=== PATIENT | female | born 1975 | race Caucasian/White ===

== ENCOUNTER 2016-07-21 11:16 | Emergency (ER) | payer OTHER ==
[~2016-07-21] VITALS: Ht 160 cm; Wt 100.0 kg
[~2016-07-21 11:16] MED LIST: ProAirHFA IH
[2016-07-21 11:27] VITALS: BP 185/129; PULSE 88; RESP 17; O2SAT 88
--- NOTE | 2016-07-21 11:34 | ED.REPORT ---
HPI-Extremity Problem Upper Date of Service July 21, 2016 ED Provider: Ralu Webster MD The patient is a 40 year old female who presents to the ED for help with pain management. For the past 8-10 months, she has had arthritic pain in the left knee. The pt just moved to the area from [place] and does not have a PCP yet. She has been to 2 Urgent Cares requesting narcotics and has not been able to get any pain medication. Her orthopedic surgeon, Dr. Kelly, told her to go to get ED for narcotics. She is starting a new job tomorrow and requests pain medication (Hydrocodone 5mg) until she can get to her primary care appointment in 9 days. She denies fever and SOB. Dr. Persaud in [place] is her orthopedic surgeon. Nursing Notes Stated Complaint: LEFT KNEE PAIN Chief Complaint: General Complaint Nursing Notes Reviewed: Yes Allergies: Coded Allergies: Nitrofurantoin (Verified Allergy, Intermediate, rash, 07/01/12) Nitrofurantoin Macrocrystal (Verified Allergy, Intermediate, rash, 07/01/12 ) Scheduled Albuterol HFA (Proair HFA) 8.5 Gm Hfa.aer.ad 2 PUFFS INHALATION Q4H Miscellaneous Medications Albuterol-Expunged Drug, Do Not Renew! (ProAir HFA-Expunged Drug, Do Not Renew! ) 200 Puff/8.5 Gm Hfa.aer.ad 8.5 GM IH General Time Seen by MD: 11:33 Chief Complaint Other (left knee pain) Hx Obtained From: Patient Arrived By: Walk-in Onset Occurred: More than a week ago... (>6 months) Symptom Duration: Since onset Quality: Painful Severity: Current: Moderate Recent Healthcare: Recent doctor visit, Previous surgery Similar Sx Previous: Yes Past Medical History Past Medical History Reports: Asthma Past Surgical History left knee surgery Smoking History Unknown if Ever Smoker Social History Other Social History: Local resident Ambulatory Status Independent Review of Systems Musculoskeletal: Reports: Joint pain (left knee), Denies: Joint swelling Complete sys rev & neg: except as marked. Physical Exam Initial Vital Signs Vital Signs (First) Date Time Temp Pulse Resp B/P Pulse Ox O2 Delivery O2 Flow Rate FiO2 07/21/16 11:27 37.3 88 17 185/129 88 Room Air Initial VS: Reviewed Head / Eyes: Atraumatic, Normocephalic, PERRL ENT: Mucous membranes moist Respiratory: Breath sounds normal, Clear to auscultation Cardiovascular: Regular rate & rhythm, Heart sounds normal Abdomen / GI: Soft, Non-tender, No guarding, No rebound, No distention Back: No CVA tenderness Skin: Warm, Dry Neurologic: Alert, Oriented General/Constitutional: Awake, Alert, Cooperative, Not toxic appearing Lower Extremity / Pelvis / MS: Full range of motion, No swelling, No erythema, No deformity Left Knee: Positive: Tenderness present... full range of motion mcmurrys is negative no joint line tenderness Re-Eval/Medical Decision Med Decision/Clinical Course 40-year-old female with chronic left knee pain 8 months due to arthritis here requesting narcotics for her chronic pain. There have been no changes. She had no trauma. There have been no fevers, nausea vomiting, redness, swelling, any other new or worsening symptoms. Her knee exam is benign with no sign symptoms of infection, trauma, negative Aisha's and Alla's. I counseled her that we do not prescribe narcotics for chronic conditions. She understood this. She was given a shot of Toradol and plan to follow up with her primary doctor this week. Re-Evaluation/Progress : Time of Eval: 11:43 Re-Evaluation/Progress Note: Plan to give pt a Toridol shot and recommended going to [facility] today to get an appointment in the next 2 days. Pt understands and agrees with plan. Counseled Regarding: Diagnosis, Lab results, Need for follow-up, When/why to return to ED Discharge & Departure Impression: Primary Impression: Chronic pain of left knee Disposition: Home Discharge Condition All VS Reviewed: Yes Condition: Stable Patient Instructions: Chronic Pain (ED) Additional Instructions: I have given you a shot of Toradol. Take Ibuprofen as needed. Go over to the [facility] clinic, they should be able to get you an appointment within the next 2 days. I am sorry we can't provide you with any narcotics. Continue to follow up with the [facility] clinic for further pain management. Return to the Emergency Department for any new or worsening symptoms. I hope you feel better soon! Referrals: NOPCP (PCP) [facility] Scribe Attestation Portion of this note were transcribed by Jacqueline Victoria. I, Dr. Webster, personally performed the history, physical exam, and medical decision-making: I reviewed and confirmed the accuracy for the information in the transcribed note. Signed by: elizabeth Almazan, 07/21/16 1300 copies to: [facility] Raul Webster MD July 21, 2016 11:34 Jacqueline Victoria July 21, 2016 11:44
[2016-07-21] MEDS ORDERED: ALBU8.5H2 INHALATION (12:02)
[2016-07-21 12:44] VITALS: BP 179/111; PULSE 77; O2SAT 98
== END 2016-07-21 12:40 | disposition home or self-care (01) ==
LOC: SED 11:16
DX: G89.29 Other chronic pain (principal); M25.562 Pain in left knee; Z88.1 Allergy status to other antibiotic agents
CPT/HCPCS: 96372; 99283; J1885

== ENCOUNTER 2016-07-27 08:53 | Emergency (ER) | payer OTHER ==
[~2016-07-27] VITALS: Ht 160 cm; Wt 100.0 kg
[~2016-07-27 08:53] MED LIST changes: +ALBU8.5H2 INHALATION
[2016-07-27 09:09] VITALS: BP 168/106; PULSE 94; RESP 18; O2SAT 97
--- NOTE | 2016-07-27 09:15 | ED.REPORT ---
HPI-Back Pain Under 40 Date of Service July 27, 2016 ED Provider: Vijay Sher MD Patient is a 40 year old female with a history of asthma, bursitis, chronic knee pain and a discectomy who presents to the ED complaining of bilateral mid side back pain onset 4 days ago. Associated symptoms include back swelling and decreased urination output. Patient denies dysuria and increased urination frequency. She reports that the pain increases with deep inhalation and is exacerbated by movement. The patient describes the pain as constant and burning. She states that she has never felt this kind of pain before. Her job does require heavy lifting, bending and stocking products. She was recently prescribed Diclofenac after going to the Residency clinic for knee pain and thinks she might be having an allergic reaction to the medication. Patient recently finished taking Prednisone. The patient is currently on her menstrual cycle. She has no history of blood clots. Nursing Notes Stated Complaint: BACK PAIN/POSSIBLE ALLERGIC REACTION Chief Complaint: Back Pain or Injury Nursing Notes Reviewed: Yes Allergies: Coded Allergies: Nitrofurantoin Macrocrystal (Verified Allergy, Intermediate, rash, 07/01/12 ) nitrofurantoin (Verified Allergy, Intermediate, rash, 07/01/12) Scheduled Albuterol HFA (Proair HFA) 8.5 Gm Hfa.aer.ad 2 PUFFS INHALATION Q4H Scheduled PRN Cyclobenzaprine (Cyclobenzaprine) 5 Mg Tablet 5 MG PO HS PRN PRN Spasm Miscellaneous Medications Albuterol-Expunged Drug, Do Not Renew! (ProAir HFA-Expunged Drug, Do Not Renew! ) 200 Puff/8.5 Gm Hfa.aer.ad 8.5 GM IH General Time Seen by MD: 09:13 Chief Complaint Back pain Hx Obtained From: Patient Arrived By: Walk-in Sudden in Onset?: Yes Onset Occurred: 4 days ago Symptom Duration: Since onset Location: : Spinal lumbar area: Spinal thoracic area Quality: Burning Associated with: Denies: Dysuria Recent Healthcare: No recent hospitalization, Recent doctor visit Past Medical History Past Medical History Reports: Asthma, Hypertension Past Surgical History left knee surgery pylonidal cyst removed discetomy Smoking History Current Every Day Smoker Social History Alcohol Use: "Social" Other Social History: Local resident Ambulatory Status Independent Review of Systems Respiratory: Denies: Non-productive cough, Shortness of breath Female: Reports: Urination decreased, Denies: Dysuria, Urinary frequency Musculoskeletal: Reports: Back pain, Lumbar pain, Thoracic pain Complete sys rev & neg: except as marked. Physical Exam Initial Vital Signs Vital Signs (First) Date Time Temp Pulse Resp B/P Pulse Ox O2 Delivery O2 Flow Rate FiO2 07/27/16 09:09 36.5 94 18 168/106 97 Room Air Initial VS: Reviewed General/Constitutional: Awake, Alert BACK: mild bilateral tenderness of the thoracic and lumbar paraspinal healed midline scar Neurologic: Oriented X3, Speech NL, No motor deficits, No sensory deficits Respiratory / Chest: Atraumatic, Breath sounds NL, Breath sounds = bilat, No respiratory distress Cardiovascular: Heart rate NL, Regular rhythm, Heart sounds NL Abdomen: Atraumatic, Soft, Non-tender Lower Extremity / Pelvis / MS: Atraumatic, Full range of motion, Neurologic intact, Vascular intact Head / Eyes: Atraumatic, Normocephalic, PERRL, EOMI Upper Extremity / MS: Atraumatic, Full range of motion Skin: Atraumatic, Color NL, No rash, Warm, Dry Psychiatric: Affect NL, Mood NL Interpretation & Diagnostics Lab Results Interpretation Test 07/27/16 10:11 Urine Color Yellow (YELLOW) Urine Appearance Slightly cloudy Urine pH 6.0 (5.0-8.0) Urine Specific [place] 1.025 (1.003-1.035) Urine Protein 30mg/dL (NEG,TRACE) Urine Glucose (UA) Negativemg/dL (NEGATIVE) Urine Ketones Negativemg/dL (NEGATIVE) Urine Occult Blood Large (NEGATIVE) Urine Nitrite Negative (NEGATIVE) Urine Bilirubin Negative (NEGATIVE) Urine Urobilinogen Normalmg/dL (NORMAL) Urine Leukocyte Esterase Negative (NEGATIVE) Urine RBC 11-50/hpf (0-2) Urine WBC 0-5/hpf (0-5) Urine Epithelial Cells Many/hpf (NONE-MOD) Urine Crystals Amorphous urates (NONE Urine Bacteria Moderate/hpf (NONE-FEW) Urine Hyaline Casts None/lpf (NONE) Urine Granular Casts None seen (NONE SEEN) Urine Waxy Casts None seen (NONE SEEN) Urine Red Blood Cell Casts None seen (NONE SEEN) Urine White Blood Cell Casts None seen (NONE SEEN) Urine Mucus Present (None Seen) Urine Trichomonas None seen (NONE SEEN) Urine Yeast None (NONE SEEN) Urinalysis Comment None Urine Culture Reflexed Indicated Re-Eval/Medical Decision Med Decision/Clinical Course Obtained ED notification on patient, in the last 3 months she has obtained prescriptions for Morphine, Lorazepam and Hydrocodone from 2 different providers. In summary, the patient is a 40-year-old female with remote history of lumbar back surgery, who presents with thoracolumbar paraspinal back pain is worse with movement, bending and twisting. Our primary and secondary assessment reveals an awake, alert patient in no acute distress. Hemodynamically stable and afebrile. Exam reveals normal neurologic exam of the lower extremities. Given this immunocompetent, afebrile, patient's history and exam, suspect muscle strain or spasm. No concerning signs or symptoms suggestive of cauda equina, cord compression, epidural abscess or other neurologic emergency. History not suggestive of referred intraabdominal pathology or vascular emergency. There is no history of significant trauma, fever, incontinence, unexplained weight loss, cancer history, long-term steroid use or IV drug use. And given the patient's young age, I do not feel imaging is warranted at this time. The patient is already taking NSAIDs and I recommended ice packs/hot packs, stretching and ibuprofen her a dose of cyclobenzaprine here in the emergency room. Symptoms improved, friend will drive patient home. UA shows no evidence of UTI and is negative. She expressed some concern that her back pain may be related to allergy to NSAIDs however her overall constellation of symptoms is not suggestive thereof. Of note, the patient was somewhat agitated and quite frustrated that she had to repeat her story to me however after offering her treatment for her back pain she seemed less upset. I treated her with cyclobenzaprine as well as Tylenol but she reported no improvement in her symptoms. She stated that she refused to leave the emergency room until we made her pain go. At this time, we informed her that we would not administer opiates or benzodiazepines. At that time, the patient stood up and chose to leave the emergency room without receiving further treatment. I have discussed with the patient results of workup, indications for return including: motor weakness in the lower extremities and/or bowel or bladder incontinence. Also emphasized the need for PCP follow up. They understand the plan. Re-Evaluation/Progress #1: Time of Eval: 09:30 Re-Evaluation/Progress Note: Discussed plan for treatment and discharge during initial interview. The patient understands and agrees to the plan for discharge. All questions were addressed. Re-Evaluation/Progress #2: Time of Eval: 10:26 Re-Evaluation/Progress Note: Rechecked patient who reports she is still in pain and is not planning on leaving until she has some relief. Counseled Regarding: Diagnosis, Lab results, Need for follow-up, When/why to return to ED Discharge & Departure Impression: Primary Impression: Lumbosacral strain Encounter type: initial encounter Qualified Code: S39.012A - Strain of muscle, fascia and tendon of lower back, initial encounter Additional Impressions: Low back pain Chronicity: acute Back pain laterality: bilateral Sciatica presence: without sciatica Qualified Code: M54.5 - Low back pain Anxiety Noncompliance by refusing intervention or support Disposition: Home All VS Reviewed: Yes Condition: Stable Patient Instructions: Acute Low Back Pain (ED) Additional Instructions: Thank you for seeking care at the emergency room. It is difficult for us to make definitive diagnoses in the ED but we believe that you are experiencing musculoskeletal pain. Our primary goal today in the ED was to evaluate you for any life-threatening conditions. Your evaluation was reassuring. You will be discharged with a prescription for Cyclobenzaprine . You should not combine this medication with alcohol or any other pain medication. We advise you not to drive or operate heavy machinery while taking Cyclobenzaprine. You can try rotating ice and heat to help with the pain. You should follow-up with your primary doctor in the next week. You should return to the ED immediately if you develop shortness of breath, lightheadedness, weakness or any other concerning signs or symptoms. Thank you for letting us partake in your care today. Referrals: [facility] Scribrobinson Attestation Portions of this note were transcribed by Pamela Argueta. I, Dr. hSer personally performed the history, physical exam and medical decision-making; I reviewed and confirmed the accuracy of the information in the transcribed note. Signed by: Adolph Gaming, 07/27/16 and 1030 copies to: [facility] Vijay Sher MD July 27, 2016 09:15 Chaparrita Argueta July 27, 2016 09:23
[2016-07-27] MEDS ORDERED: CYCL5TAB PO (09:56)
[2016-07-27 10:49] LABS: APPEARANCE,URINE SLIGHTLY CLOUDY (CLEAR,HAZY); COLOR,URINE YELLOW (YELLOW); OCCULT BLOOD,URINE LARGE (NEGATIVE); UROBILINOGEN,URINE NORMAL (NORMAL)
[2016-07-27 11:28] VITALS: BP 152/94; PULSE 98; RESP 18; O2SAT 98
== END 2016-07-27 11:29 | disposition home or self-care (01) ==
LOC: SED 08:53
DX: S39.012A Strain of muscle, fascia and tendon of lower back, initial encounter (principal); X50.0XXA Overexertion from strenuous movement or load, initial encounter; Y92.59 Other trade areas as the place of occurrence of the external cause; Y93.89 Activity, other specified; Y99.0 Civilian activity done for income or pay; F41.9 Anxiety disorder, unspecified; J45.909 Unspecified asthma, uncomplicated; M71.9 Bursopathy, unspecified; M25.569 Pain in unspecified knee; G89.29 Other chronic pain; I10 Essential (primary) hypertension; F17.200 Nicotine dependence, unspecified, uncomplicated; Z91.19 Patient's noncompliance with other medical treatment and regimen; Z98.890 Other specified postprocedural states; Z88.1 Allergy status to other antibiotic agents

== ENCOUNTER 2016-10-20 19:38 | Emergency (ER) | payer OTHER ==
[~2016-10-20] VITALS: Ht 160 cm; Wt 106.5 kg
[~2016-10-20 19:38] MED LIST changes: +CYCL5TAB PO
[2016-10-20 20:22] VITALS: BP 165/115; PULSE 100; RESP 18; O2SAT 99
[2016-10-20 21:15] VITALS: BP 197/104
--- NOTE | 2016-10-20 21:23 | ED.REPORT ---
HPI-General Illness Date of Service Oct 20, 2016 ED Provider: Juliano Hewitt MD The pt is a 40 y/o female with a hx of HTN who presents to the ED complaining of worms in her stool, since yesterday. The worms look like pinworms. Associated sx include itching around the anus. She denies abdominal pain. Her sons also have the same sx. There are no other complaints at this time. Nursing Notes Stated Complaint: WORMS Chief Complaint: General Complaint Nursing Notes Reviewed: Yes Allergies: Coded Allergies: Nitrofurantoin Macrocrystal (Verified Allergy, Intermediate, rash, 07/01/12 ) nitrofurantoin (Verified Allergy, Intermediate, rash, 07/01/12) Scheduled Albendazole (Albenza) 200 Mg Tablet 200 MG PO ONCE Albuterol HFA (Proair HFA) 8.5 Gm Hfa.aer.ad 2 PUFFS INHALATION Q4H Scheduled PRN Cyclobenzaprine (Cyclobenzaprine) 5 Mg Tablet 5 MG PO HS PRN PRN Spasm Miscellaneous Medications Albuterol-Expunged Drug, Do Not Renew! (ProAir HFA-Expunged Drug, Do Not Renew! ) 200 Puff/8.5 Gm Hfa.aer.ad 8.5 GM IH General Time Seen by MD: 21:22 Chief Complaint Other (worms in stool) Hx Obtained From: Patient Arrived By: Walk-in Sudden in Onset?: Yes Onset Occurred: Yesterday Symptom Duration: Since onset Severity: Current: No pain currently Severity: Maximum: No pain Recent Healthcare: No recent doctor visit Past Medical History Past Medical History Reports: Asthma, Hypertension Past Surgical History left knee surgery pylonidal cyst removed discetomy Smoking History Current Every Day Smoker Social History Alcohol Use: "Social" Other Social History: Local resident Ambulatory Status Independent Review of Systems Reports: worm in stool Reports: itching around the anus Full Review of Systems GI: Denies: Abdominal pain Complete sys rev & neg: except as marked. Physical Exam Vital Signs Vital Signs Date Time Temp Pulse Resp B/P Pulse Ox O2 Delivery O2 Flow Rate FiO2 10/20/16 21:15 197/104 10/20/16 20:22 37.3 100 18 165/115 99 Room Air Initial VS: Reviewed Head / Eyes: Atraumatic, Normocephalic, PERRL Neck: Supple, Non-tender, Full range of motion Respiratory: Breath sounds normal, Clear to auscultation, No respiratory distress Cardiovascular: Regular rate & rhythm, Heart sounds normal, Intact distal pulses Abdomen / GI: Soft, Non-tender, No guarding, No rebound, No distention Extremities: Vascular intact, Neuro intact, No swelling, No tenderness Skin: Warm, Dry, No cyanosis Neurologic: Alert, Oriented, Nonfocal General/Constitutional: Awake, Alert, No acute distress, Well appearing, Cooperative Rectal exam not done. Re-Eval/Medical Decision Med Decision/Clinical Course Patient reports visible pin worms in stool. Prescription written and remaining family treated. Time of Eval: 21:25 Re-Evaluation/Progress Note: Discussed diagnosis and plan to discharge. The pt understands and agrees with the plan. F/U and RTER given. All questions answered. Counseled Regarding: Diagnosis, Need for follow-up, When/why to return to ED Discharge & Departure Primary Impression: Pinworms Disposition: Home Discharge Condition All VS Reviewed: Yes Patient Instructions: Pinworm Infection (ED) Additional Instructions: Pinworm infection is treated with a single dose of albendazole, prescription written. Please do the cleaning that is recommended on the instruction sheet. Wash all clothing and bedding that has come in contact with the patient's since washing. Referrals: NOPCP (PCP) Scribe Attestation Portions of this note were transcribed by Kyle Sanchez. I,, personally performed the history,physical exam and medical decision-making;I reviewed and confirmed the accuracy of the information in the transcribed note. Signed by Adolph Roman. 10/20/16 Juliano Hewitt MD Oct 20, 2016 21:23 Kyle Sanchez Oct 20, 2016 21:48
[2016-10-20] MEDS ORDERED: ALBE200T2 PO (21:48)
== END 2016-10-20 22:14 | disposition home or self-care (01) ==
LOC: SED 19:38
DX: B80 Enterobiasis (principal); I10 Essential (primary) hypertension; J45.909 Unspecified asthma, uncomplicated; F17.200 Nicotine dependence, unspecified, uncomplicated